=== PATIENT | male | born 1970 | race Caucasian/White ===

== ENCOUNTER → 2018-02-08 07:40 | Outpatient (CLI) | payer BC, SELFPAY ==
--- NOTE | 2018-02-08 07:45 | US_ITS ---
US abdomen complete HISTORY: Left-sided pain and swelling, splenomegaly ITS.REASON: SPLENOMEGALY ORDERING PHYSICIAN: Purvi Mayer PATIENT AGE: 47 years COMPARISON: None FINDINGS: PANCREAS:Unremarkable. No obvious mass or abnormal fluid collection. No ductal dilatation LIVER:There is diffuse increased echogenicity of the liver with poor through transmission of sound consistent with hepatic steatosis. The liver is not well delineated due to the severe fatty liver. There is appropriate direction of blood flow within the portal vein. The portal vein does not appear enlarged RIGHT KIDNEY:Unremarkable. Normal size and echogenicity. No hydronephrosis LEFT KIDNEY:Unremarkable. No hydronephrosis. Normal size and echogenicity. GALLBLADDER:No shadowing stones. No gallbladder wall thickening, pericholecystic fluid, or biliary dilatation. Sludge/concentrated bile is present within the gallbladder. AORTA:No evidence of aneurysmal dilatation. SPLEEN:Spleen is upper limits of normal in size at 13 cm with homogeneous echogenicity ASCITES:None demonstrated. IMPRESSION: 1. Fatty liver. 2. Borderline splenomegaly.
== END ==
PROVIDERS: Family Provider Nurse Practitioner; PCP Family Medicine; Visit Provider Nurse Practitioner
DX: R16.1 Splenomegaly, not elsewhere classified (principal)
CPT/HCPCS: 76700

== ENCOUNTER → 2018-04-26 08:23 | Outpatient (CLI) | payer BC, SELFPAY ==
--- NOTE | 2018-04-26 08:31 | US_ITS ---
US abdomen limited History:Elevated Rose-Robledo titer, evaluate for splenomegaly Ordering Physician:Purvi Mayer Patient Age: 47 years Comparison:None Findings:Spleen is mildly prominent at 13 x 5 cm. No splenic lesions are evident. Left kidney has an unremarkable appearance. There is homogeneous echogenicity of the spleen with no obvious lesions. No perisplenic fluid. IMPRESSION: Borderline splenomegaly otherwise negative splenic ultrasound
== END ==
PROVIDERS: PCP Family Medicine; Visit Provider Nurse Practitioner
DX: R76.0 Raised antibody titer (principal)
CPT/HCPCS: 76705

== ENCOUNTER → 2018-06-14 12:01 | Outpatient (CLI) | payer BC, SELFPAY ==
--- NOTE | 2018-06-14 12:10 | US_ITS ---
US abdomen complete HISTORY: ITS.REASON: ABDOMINAL DISTENTION ORDERING PHYSICIAN: Purvi Mayer PATIENT AGE: 47 years COMPARISON: None FINDINGS: PANCREAS:Unremarkable. No obvious mass or abnormal fluid collection. No ductal dilatation LIVER:No focal liver lesions demonstrated. Homogeneous echogenicity. No intrahepatic biliary ductal dilatation evident. There is increased echogenicity of the liver with poor through transmission of sound consistent with fatty liver RIGHT KIDNEY:Unremarkable. Normal size and echogenicity. No hydronephrosis LEFT KIDNEY:Unremarkable. No hydronephrosis. Normal size and echogenicity. GALLBLADDER:No gallstones, gallbladder wall thickening, pericholecystic fluid, or biliary dilatation.. There is a small amount sludge in the gallbladder AORTA:No evidence of aneurysmal dilatation. SPLEEN:Unremarkable. Spleen is mildly prominent at 13 cm ASCITES:None demonstrated. IMPRESSION: 1. Fatty liver. 2. Borderline splenomegaly 3. Small amount of gallbladder sludge
== END ==
PROVIDERS: PCP Nurse Practitioner; Visit Provider Nurse Practitioner
DX: R14.0 Abdominal distension (gaseous) (principal)
CPT/HCPCS: 76700

== ENCOUNTER → 2018-06-27 10:11 | Outpatient (CLI) | payer BC, SELFPAY ==
--- NOTE | 2018-06-27 10:18 | NM_ITS ---
NM hepatobiliary wo pharm HISTORY: Abdominal pain and bloating ITS.REASON: GALLBLADDER DISEASE ORDERING PHYSICIAN: Purvi Mayer PATIENT AGE: 47 years COMPARISON: 06/14/2018 DOSE: 8.17 MCI TC Choletec INJ Into RT ANT Fatty Meal Ensure FINDINGS: Homogeneous activity is present within the hepatic parenchyma. Activity is present in the gallbladder by 15 minutes. Activity is present in the small bowel by 30 minutes. The gallbladder ejection fraction is calculated to be 19%. There is a moderate amount of activity or within the small bowel before the fatty meal was given. This could in part account for the low gallbladder ejection fraction The patient did not report pain or other symptoms during the fatty meal. IMPRESSION: 1. No evidence of common or cystic duct obstruction. 2. Low gallbladder ejection fraction. Please correlate with clinical parameters
--- NOTE | 2018-06-27 10:33 | HMH.ITSHM ---
Current Home Medications as stated by this patient Avtar Morin or customer relations representative. []LISINOPRIL HYDROCHLOROTHIAZIDE
== END ==
PROVIDERS: PCP Nurse Practitioner; Visit Provider Nurse Practitioner
DX: K82.9 Disease of gallbladder, unspecified (principal)
CPT/HCPCS: 78226; A9537

== ENCOUNTER → 2018-07-16 09:18 | Outpatient (CLI) | payer BC, SELFPAY ==
--- NOTE | 2018-07-16 09:26 | CT_ITS ---
CT abdomen pelvis w con INDICATION: Abdominal swelling. Abdominal pain. ITS.REASON: abdominal swelling/ with iv oral contrast ORDERING PHYSICIAN: Ash Dallas MD PATIENT AGE: 47 years COMPARISON: Ultrasound abdomen May 2018 . TECHNIQUE: 75 cc Isovue-370 IV contrast utilized. Redicat oral contrast also utilized Axial images obtained with sagittal and coronal reformats. All CT scans at the facility use one or more dose reduction, viz: automated exposure control, ma/kV adjustment per patient size (including targeted exams where dose is matched to indication, i.e. head), or iterative reconstruction technique. FINDINGS: Lung bases appear clear. No active disease. Heart normal size. ABDOMEN/PELVIS . Liver, spleen, pancreas appears satisfactory. Adrenals: Adrenals appear normal in size. Thin with no nodule.. Only note . Subtle Faint dots of calcification at one of the limb of the right adrenal just above the top of right kidney. May reflect old adrenal trauma or hemorrhage. Not of current significance.. Doubt renal Gallbladder. No calcified gallstones. Suspect mildly suspect sludge. The common duct normal diameter. Pancreas appears satisfactory. SPLEEN appears normal in size measuring 10 cm length and transverse X 14 cm AP.. Small splenule just medial spleen and just adjacent to tail of pancreas-one of these on axial image 44. No retroperitoneal nor mesenteric nor pelvic adenopathy. TRACT. No urinary tract calculi nor obstruction. Kidneys normal in size and configuration. Ureters unremarkable. Pelvis. Bladder wall upper normal thickness. Period small prostate and seminal vesicles. GI TRACT. Appendix well-visualized and normal. It extends to midline and just anterior to the aortic bifurcation. Moderate stool throughout the right colon minimal stool at transverse and left colon. Small bowel. Normal caliber. OSSEOUS. Mild disc bulge and degenerative disc space narrowing L5/S1. No osseous lesions IMPRESSION: No acute findings abdomen or pelvis Noting history of recent mono the spleen is normal in size and appears intact/normal. Otherwise only note Small splenule medial to the spleen.. Normal variant
== END ==
PROVIDERS: PCP Nurse Practitioner; Visit Provider Surgery
DX: R19.00 Intra-abdominal and pelvic swelling, mass and lump, unspecified site (principal)
CPT/HCPCS: 74177; Q9967

== ENCOUNTER → 2019-04-17 10:15 | Outpatient (CLI) | payer BC, SELFPAY ==
[2019-04-17 13:34] LABS: Basophils # 0.1 K/mm3 (0-0.2); Basophils % 0.8 % (0.1-2.0); Eosinophils # 0.3 K/mm3 (0.0-0.4); Eosinophils % 3.9 % (0.1-12.0); Hematocrit 46.4 % (42.0-52.0); Hemoglobin 15.2 g/dL (14.1-18.0); Lymphocytes # 2.1 K/mm3 (0.7-4.5); Lymphocytes % 32.9 % (10-50); Mean Corpuscular HGB Conc 32.7 g/dL (31.8-35.4); Mean Corpuscular Hemoglobin 30.4 pg (27.0-31.2); Mean Platelet Volume 7.9 fl (7.4-10.4); Monocytes # 0.3 K/mm3 (0.1-1.0); Monocytes % 4.2 % (1.7-9.3); Neutrophils # 3.7 K/mm3 (1.8-7.8); Neutrophils % 58.2 % (37.0-80.0); Platelet Count 239 K/mm3 (142-424); Red Blood Count 4.99 M/mm3 (4.60-6.20); Red Cell Distribution Width 12.9 % (11.5-17.5); White Blood Count 6.3 K/mm3 (4.8-10.8)
[2019-04-17 13:58] LABS: Alanine Aminotransferase 54 U/L (12-78); Albumin Level 3.7 gm/dL (3.4-5.0); Albumin/Globulin Ratio 1.2 (1.1-1.8); Alkaline Phosphatase 47 U/L (46-116); Aspartate Amino Transferase 21 U/L (15-37); Bilirubin,Total 0.8 mg/dL (0.2-1.0); Blood Urea Nitrogen 17 mg/dL (7-18); Calcium 9.1 mg/dL (8.5-10.1); Carbon Dioxide 31 mmol/L (21.0-32.0); Creatinine,Serum 1.13 mg/dL (0.70-1.30); Estimated Glomerular Filt Rate 70 ml/min (>60); GFR (African American) 85 ML/MIN (>60); Globulin 3.1 gm/dl (1.3-3.2); Glucose 108 mg/dL (74-106); Thyroid Stimulating Hormone 2.18 uIU/ml (0.358-3.740); Total Protein,Serum 6.8 gm/dL (6.4-8.2)
[2019-04-17 14:32] LABS: Anion Gap 8.6 mEq/L (5-15); Chloride 101 mmol/L (98-107); Potassium 3.6 mmoL/L (3.5-5.1); Sodium 137 mmol/L (136-145)
[2019-04-18 21:08] LABS: EBV Ab VCA, IgM <36.0 U/mL (0.0-35.9); EBV Nuclear Antigen Ab, IgG <18.0 U/mL (0.0-17.9); Epstein-Barr Virus Early Ag Ab <9.0 U/mL (0.0-8.9)
== END ==
PROVIDERS: PCP Nurse Practitioner Family; Visit Provider Nurse Practitioner Family
DX: R53.83 Other fatigue (principal)
CPT/HCPCS: 36415; 80053; 84443; 85025; 86663; 86664; 86665

== ENCOUNTER → 2019-04-24 15:45 | Outpatient (CLI) | payer BC, SELFPAY | PROVIDERS: PCP Family Medicine; Visit Provider Nurse Practitioner Family | DX: G47.33 Obstructive sleep apnea (adult) (pediatric) (principal); R40.0 Somnolence; R51 Headache; R06.83 Snoring | CPT/HCPCS: G0399 ==

== ENCOUNTER → 2021-07-12 09:01 | Outpatient (CLI) | payer BC, SELFPAY ==
--- NOTE | 2021-07-12 09:14 | US_ITS ---
PROCEDURE INFORMATION: Exam: US Right Breast Limited Exam date and time: 07/12/2021 9:14 AM Age: 50 years old Clinical indication: Patient reports pain behind the nipple for the past month TECHNIQUE: Imaging protocol: Limited ultrasound of Right breast with image documentation, including axilla when performed. Exam focused on the search and evaluation for mass. COMPARISON: No relevant prior studies available. FINDINGS: Breast: Sonographic images of the right periareolar region do not demonstrate any solid or cystic masses. No architectural distortion or acoustical shadowing. No axillary adenopathy. IMPRESSION: A diagnostic right mammogram is recommended at the current time for full evaluation of the patient's complaint of new onset focal right breast pain ASSESSMENT: BI-RADS Category 0: Incomplete- Need Additional Imaging Evaluation and/or Prior Mammograms for Comparison
== END ==
PROVIDERS: PCP Family Medicine; Visit Provider Family Medicine
DX: N64.4 Mastodynia (principal)
CPT/HCPCS: 76641

== ENCOUNTER → 2021-09-06 13:39 | Outpatient (CLI) | payer BC, SELFPAY ==
--- NOTE | 2021-09-06 13:43 | MM_ITS ---
PROCEDURE INFORMATION: Exam: Bilateral Diagnostic Breast Tomosynthesis Exam date and time: 09/06/2021 1:43 PM Age: 50 years old Clinical indication: Recall on the basis of ultrasound from 07/12/2021 for diagnostic mammographic evaluation of new onset focal right breast pain. TECHNIQUE: Imaging protocol: Bilateral Diagnostic tomosynthesis and 2D mammography including computer-aided detection (CAD) when performed. Unilateral or bilateral exam. Spot compression images added in the central right breast. COMPARISON: US BREAST RT COMPLETE 07/12/2021 9:43 AM FINDINGS: MAMMOGRAPHY: The breasts are almost entirely fatty. No mammographic findings in the central right breast at the area of pain. No mass. No suspicious calcifications. No architectural distortion or asymmetry. Unremarkable axilla. IMPRESSION: No mammographic evidence of malignancy. Further evaluation of a painful abnormality should be based on clinical grounds regardless of radiographic findings or lack thereof. ASSESSMENT: BI-RADS Category 1: Negative
== END ==
PROVIDERS: PCP Family Medicine; Visit Provider Family Medicine
DX: N64.4 Mastodynia (principal)
CPT/HCPCS: 77062; 77066; G0279

== ENCOUNTER 2021-10-22 07:00 | Outpatient (RCR) | payer BC, SELFPAY ==
--- NOTE | 2021-09-27 08:27 | HMH.PTOPEV ---
PT Outpatient Evaluation Rehab PT Outpatient Evaluation Start: 09/27/21 07:05 Freq: Status: Active Protocol: Document 09/27/21 07:05 PDESEROUX (Rec: 09/27/21 08:23 PDESEROUX [id number]) Electronically Signed By Les Rodríguez PT 09/27/21 07:05 Outpatient Therapy Subjective History Subjective History Pt. is a 50 year old male who presents to [facility] Outpatient Physical Therapy Services for the initial evaluation this date(09/27/21) w/ c/o subacute on chronic and activity dependent/ intermittent lumbar and LLE P! , numbness, and edema of insidious onset that had worsened since of this year(2021). However, pt. reports symptom onset was 6 years after hurting his back @ work, but symptoms were managed w/ OTC Tylenol and Aleve. Pt. reports not being able to manage symptoms w/ OTC anti-inflammatories when symptoms worsened in of this year(2021). Pt. denies having recent diagnostic imaging nor injections for current c/o symptoms. However, pt. reports having an MRI 6 years ago that was positive for L2-L5 bulging discs and a disc herniation. Pt. reports symptoms worsen w/ standing/ ambulating on feet for 10'. Pt . stated having symptom relief w/ immediate sitting or laying(supine) w/ BLE propped up on a chair. Pt. reports having radicular symptoms that radiate to his foot(LLE), denies having symptoms into the RLE, denies having any bowel/bladder dysfunction. 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 Pt. denies having a history of cancer(self), but reports cancer runs in
== END 2021-11-25 12:08 | disposition home or self-care (01) ==
LOC: PT.CARL 07:00
PROVIDERS: PCP Family Medicine; Visit Provider Nurse Practitioner Family
DX: M54.32 Sciatica, left side (principal); M51.26 Other intervertebral disc displacement, lumbar region
CPT/HCPCS: 97010; 97012; 97014; 97110; 97140; 97163; 97535; G0283

== ENCOUNTER → 2023-01-10 15:47 | Outpatient (CLI) | payer BC, SELFPAY ==
--- NOTE | 2023-01-10 15:53 | CT_ITS ---
FINAL REPORT TECHNIQUE: Thin section axial images were obtained from the lung bases to the pubic symphysis without IV contrast. Coronal reconstruction images were obtained from the axial data. Exam was performed using dose reduction technique. CLINICAL HISTORY: RIGHT FLANK PAIN COMPARISON: June 2018 FINDINGS: There are no renal or ureteral stones. There is no hydronephrosis or perinephric stranding. The gallbladder is present. The liver is fatty infiltrated. The remaining unenhanced solid abdominal organs are unremarkable. There is no evidence of small bowel obstruction. The appendix is normal. GI tract is without acute abnormality. There is no lymphadenopathy or ascites. No acute osseous abnormality is identified. IMPRESSION: No renal or ureteral stones. No hydronephrosis. Fatty liver. Reviewed, Interpreted and Dictated by Marii Ellis MD Transcribed by Gio Dietrich Authenticated and [facility]
== END ==
LOC: RAD 15:48
PROVIDERS: PCP Nurse Practitioner Family; Visit Provider Nurse Practitioner Family
DX: R10.9 Unspecified abdominal pain (principal)
CPT/HCPCS: 74176

== ENCOUNTER → 2023-04-17 14:30 | Outpatient (CLI) | payer BC, SELFPAY | PROVIDERS: PCP Nurse Practitioner Family; Visit Provider Nurse Practitioner Family | DX: R05.9 Cough, unspecified (principal) | CPT/HCPCS: 87635 ==

== ENCOUNTER 2024-03-14 06:52 | Day surgery (SDC) | payer BC, SELFPAY ==
[2024-03-07 11:45] VITALS: BMI 45.9
[2024-03-14] MEDS: LACTATED RINGERS 1000ML 1,000 ML 25 ML IV (07:10)
--- NOTE | 2024-03-14 07:12 | P.PNANES_ITS ---
[facility] Disclaimer: The information contained in this section may have been updated after the patient was seen, as this information can be updated by other users. Medical History Seasonal allergies HTN (hypertension) Surgical History No history of previous surgery Family History Family/Other Cancer Other Family history of COPD (chronic obstructive pulmonary disease) Family history of diabetes mellitus Social History Smoking Status: Never smoker alcohol intake: never substance use type: denies use current occupational status: employed Travel in the last 8 weeks: None caffeine: No [facility] Anesthesia Checklist Patient Identification Patient Identification: Arm Band and Verbal (Name & ) Structural Data Admitted From: Home Planned Operative Procedure/s: Colonoscopy Consent for Planned Operative Procedure(s) Verified: Yes Verified Documents: Surgical Consent and History and Physical NPO Status Verified Time NPO: 00:00 Additional verifications Anesthesia Reactions: No Airway Assessment Mallampati Score:: Class IV C-Spine Mobility Assessed: Yes TMJ Mobility Assessed: Yes Dentition: Edentulous Neurological Assessment Level of Consciousness: Awake Hx Seizures: No Numbness or tingling in extremities: No Anesthesia Plan Anesthesia Risk discussed: Yes Anesthesia Plan: Verified ASA Class: III Anesthesia Type: MAC
[2024-03-14 07:13] VITALS: BP 143/106; PULSE 85; RESP 18; TEMP 36.1; O2SAT 98
[2024-03-14 08:08] VITALS: O2SAT 98
--- NOTE | 2024-03-14 08:15 | P.PCN_ITS ---
[facility] Procedure Note Date: 03/14/24 Time: 08:15 Procedure Note:: Colonoscopy Procedure Report: Colonoscopy with cold snare polypectomy Endoscopist: Leighton Guerrero II, MD Referring physician: ALEXANDRA Whitehead Date of Procedure: 03/14/2024 Equipment: Olympus 190 variable stiffness pediatric colonoscope Sedation: MAC sedation Indication: Mr. Morin is a 53-year-old gentleman who is here for follow-up screening/surveillance colonoscopy. His sister had colon cancer at the age of 50. He did have a colonoscopy in August 2018 which was normal and had no polyps. He does have some intermittent hemorrhoidal bleeding that occurs every 4 to 6 months. He reports no hemorrhoidal prolapse. He reports no abdominal pain, weight loss or change in his bowel habits. Procedure: Prior to the procedure, a history and physical exam was performed, and patient's medications and allergies were reviewed. The risks, benefits and alternatives of the sedation and procedure were discussed with the patient. All questions were answered and informed consent was obtained. The patient was brought to the procedure room. Patient identification and proposed procedure were verified by the physician and the nurse. The patient was placed in a left lateral decubitus position and the scope was passed under direct vision. Throughout the procedure, the patient's blood pressure, pulse, and oxygen saturations were monitored continuously. The colonoscopy was accomplished without difficulty. The patient tolerated the procedure well. Findings: On digital rectal examination there was normal rectal tone. There were no external hemorrhoids. The prostate was 2+, smooth, soft, symmetric without nodules. The colonoscope was introduced through the anal canal to the rectum and advanced to the cecum. The ileocecal valve and appendiceal orifice were identified. The scope was advanced a short distance into the ileum which appeared grossly normal. The scope was then withdrawn into the colon. The cecum, ascending and transverse colon and mucosa were grossly normal. There was a single diminutive polyp (4 mm) in the descending colon removed via cold snare polypectomy. There were scattered diverticuli throughout the descending and sigmoid colon (LEFT colon). The rectum itself was normal. Upon retroflexion within the rectum there were grade 2 internal hemorrhoids. The preparation was excellent throughout with [place] Preparation Score of 9. The cecal time was 11 minutes. Impression: 1. Diminutive descending polyp 2. Left-sided diverticulosis 3. Grade 2 internal hemorrhoids Plan: I will follow up the polyp pathology and recommend repeat colonoscopy again in 5 years based upon the patient's family history and polyp histology. I do feel that his rare intermittent bleeding is secondary to the internal hemorrhoids. I would encourage fiber supplementation on a long-term daily main tenance basis. He may also use anti-inflammatory hemorrhoidal suppositories as needed.
[2024-03-14 08:33] VITALS: BP 104/63; PULSE 78; RESP 16; TEMP 36.6; O2SAT 96
[2024-03-14 08:43] VITALS: BP 118/70; PULSE 79; RESP 16; O2SAT 98
[2024-03-14 08:53] VITALS: BP 106/69; PULSE 70; RESP 16; O2SAT 99
[2024-03-14 09:03] VITALS: BP 113/85; PULSE 77; RESP 16; O2SAT 99
== END 2024-03-14 09:06 | disposition home or self-care (01) ==
PROVIDERS: PCP Nurse Practitioner Family; Visit Provider Internal Medicine Gastroenterology
DX: K63.5 Polyp of colon (principal); K57.30 Diverticulosis of large intestine without perforation or abscess without bleeding; K64.1 Second degree hemorrhoids; Z12.11 Encounter for screening for malignant neoplasm of colon; Z80.0 Family history of malignant neoplasm of digestive organs
CPT/HCPCS: 45385; J7120

== ENCOUNTER 2024-08-15 15:28 | Outpatient (CLI) | payer BC, SELFPAY ==
[2024-08-15 13:13] LABS: Coronavirus 19, PCR Not Detected (NotDetected); Human Rhinovirus Not Detected (NotDetected); Influenza A, PCR Not Detected (NotDetected); Influenza B, PCR Not Detected (NotDetected); Respiratory Syncytial Virus Not Detected (NotDetected)
== END 2024-08-15 23:59 | disposition home or self-care (01) ==
LOC: LAB.DROPOF 15:28
PROVIDERS: PCP Nurse Practitioner Family; Visit Provider Nurse Practitioner Family
DX: R05.9 Cough, unspecified (principal); B97.89 Other viral agents as the cause of diseases classified elsewhere; J98.8 Other specified respiratory disorders; R53.83 Other fatigue
CPT/HCPCS: 87631

== ENCOUNTER 2025-03-13 11:34 | Outpatient (CLI) | payer BC, SELFPAY ==
[2025-03-13 13:38] LABS: Influenza A, PCR Not Detected (NotDetected); Influenza B, PCR Not Detected (NotDetected)
[2025-03-13 20:05] LABS: Coronavirus 19, PCR Detected (NotDetected)
== END 2025-03-13 23:59 ==
LOC: LAB.DROPOF 03-17 09:23
PROVIDERS: PCP Nurse Practitioner Family; Visit Provider Nurse Practitioner Family
DX: J02.9 Acute pharyngitis, unspecified (principal); R09.81 Nasal congestion; R05.9 Cough, unspecified
CPT/HCPCS: 87631